=== PATIENT | female | born 1970 | race African-American/Black ===

== ENCOUNTER 2019-08-29 07:41 | Emergency (ER) | payer OTHER ==
[~2019-08-29] VITALS: Ht 177.8 cm; Wt 190.5 kg
[2019-08-29 07:43] VITALS: Ht 177.8 cm; Wt 190.5 kg
[2019-08-29 08:56] LABS: CALCIUM 8.9 mg/dL (8.5-10.1); CARBON DIOXIDE 23.1 mmol/L (21-32); CREATININE SERUM 3.6 mg/dL (0.6-1.0); POTASSIUM SERUM 4.3 mmol/L (3.5-5.1)
[2019-08-29 08:59] LABS: BILIRUBIN TOTAL 0.4 mg/dL (0.20-1.00); TOTAL PROTEIN, SERUM 8.2 g/dL (6.4-8.2)
[2019-08-29 09:01] LABS: ALBUMIN 3.1 g/dL (3.4-5.0)
[2019-08-29 09:21] LABS: UA SPECIFIC GRAVITY 1.015 (1.005-1.035); microscopic required? YES; urine erythrocyte NEGATIVE (NEGATIVE)
[2019-08-29 10:20] LABS: PLATELET COUNT 159 x10^3mcL (130-400); RED CELL DISTRIBUTION WIDTH 17.8 % (11.5-14.5)
[2019-08-29 10:50] VITALS: BP 122/68
== END 2019-08-29 10:50 | disposition home or self-care (01) ==
LOC: ED 07:41
PROVIDERS: Emergency Medicine
DX: E11.649 Type 2 diabetes mellitus with hypoglycemia without coma (principal); I11.0 Hypertensive heart disease with heart failure; I50.9 Heart failure, unspecified
CPT/HCPCS: 36415; 82962